=== PATIENT | male | born 1965 | race Two or more races ===

== ENCOUNTER 2016-10-26 11:49 | Inpatient (IN) | payer OTHER ==
[2016-10-26 13:03] VITALS: BMI 23.6
--- NOTE | 2016-10-26 14:33 | HP ---
CIWA Score - CIWA Score Nausea/Vomitin-Mild Nausea/No Vomiting Muscle Tremors: 4-Moderate,w/Arms Extend Anxiety: 3 Agitation: 4-Moderately Restless Paroxysmal Sweats: 3 Orientation: 0-Oriented Tacttile Disturbances: 0-None Auditory Disturbances: 0-None Visual Disturbances: 0-None Headache: 1-Very Mild CIWA-Ar Total Score: 16 Admission ROS [facility] - HPI Chief Complaint: I need to get clean and stay sober. Allergies/Adverse Reactions: Allergies Allergy/AdvReac Type Severity Reaction Status Date / Time No Known Allergies Allergy Verified 10/26/16 14:17 History of Present Illness: pt is a 51yr old male with a history of alcohol, xanax and cocaine dependence seeking detox for treatment. Exam Limitations: Language Barrier (speak/understand Swedish very little Hungarian ), Physical Impairment (uses a cane to ambulate) - Ebola screening Have you traveled outside of the country in the last 21 days: No Have you had contact with anyone from an Ebola affected area: No Have you been sick,other than usual withdrawal symptoms: No Do you have a fever: No - Review of Systems Constitutional: Chills, Diaphoresis, Loss of Appetite, Weight Stable EENT: reports: Nose Congestion Respiratory: reports: No Symptoms reported Cardiac: reports: No Symptoms Reported GI: reports: Diarrhea, Nausea, Poor Fluid Intake, Vomiting, Indigestion : reports: No Symptoms Reported Musculoskeletal: reports: Back Pain, Joint Pain Integumentary: reports: Bruising (on left knee d/t fall), Erythema, Flushing Neuro: reports: Headache, Tingling, Tremors Endocrine: reports: Excessive Sweating, Flushing, Intolerance to Cold, Intolerance to Heat Hematology: reports: No Symptoms Reported Psychiatric: reports: No Sypmtoms Reported, Judgement Intact, Mood/Affect Appropiate, Orientated x3, Agitated, Anxious Other Systems: Reviewed and Negative Patient History - Patient Medical History Hx Anemia: No Hx Asthma: No Hx Chronic Obstructive Pulmonary Disease (COPD): No Hx Cancer: No Hx Cardiac Disorders: No Hx Congestive Heart Failure: No Hx Hypertension: No Hx Hypercholesterolemia: No Hx Pacemaker: No HX Cerebrovascular Accident: No Hx Seizures: No Hx Dementia: No Hx Diabetes: Yes Hx Gastrointestinal Disorders: No Hx Liver Disease: Yes Hx Genitourinary Disorders: No Hx Sexually Transmitted Disorders: No Hx Renal Disease (ESRD): No Hx Thyroid Disease: No Hx Human Immunodeficiency Virus (HIV): No Hx Hepatitis C: Yes (NEEDS TREATMENT) Hx Depression: Yes Hx Suicide Attempt: No (denies) Hx Bipolar Disorder: Yes Hx Schizophrenia: No Other Medical History: anxiety - Patient Surgical History Past Surgical History: No Hx Neurologic Surgery: No Hx Cataract Extraction: No Hx Cardiac Surgery: No Hx Lung Surgery: No Hx Breast Surgery: No Hx Breast Biopsy: No Hx Abdominal Surgery: No Hx Appendectomy: No Hx Cholecystectomy: No Hx Genitourinary Surgery: No Hx Section: No Hx Orthopedic Surgery: No Anesthesia Reaction: No - PPD History Previous Implant?: Yes Documented Results: Positive w/o proof Implanted On Prior [facility] Admission?: No Results: cxr PPD to be Administered?: No - Reproductive History Patient is a Female of Child Bearing Age (11 -55 yrs old): No - Smoking Cessation Smoking history: Current every day smoker Aproximately how many cigarettes per day: 2 Hx Chewing Tobacco Use: No Initiated information on smoking cessation: Yes 'Breaking Loose' booklet given: 10/26/16 - Substance & Tx. History Hx Alcohol Use: Yes Hx Substance Use: Yes Substance Use Type: Alcohol, Cocaine, Heroin, Prescribed Hx Substance Use Treatment: Yes (last detox 2yrs ago [facility]) - Substances Abused Cocaine Route: Inhalation Frequency: Daily Amount used: $40-50 Age of first use: 14 Date of Last Use: 10/25/16 Heroin Route: Inhalation Frequency: Daily Amount used: 2 bags Age of first use: 14 Date of Last Use: 10/25/16 Alcohol-beer Route: Oral Frequency: 3-6 times per week Amount used: 4 (12 oz.) Age of first use: 13 Date of Last Use: 10/25/16 Xanax Route: Oral Frequency: Daily Amount used: 6 mg. Age of first use: 41 Date of Last Use: 10/25/16 Family Disease History - Family Disease History Family Disease History: Diabetes: Mother, Other: Father ( OF A STROKE) Admission Physical Exam BHS - Vital Signs Vital Signs: Vital Signs - 24 hr 10/26/16 12:59 Temperature 97 F L Pulse Rate 58 L Respiratory 20 Rate Blood Pressure 118/71 - Physical General Appearance: Yes: Appropriately Dressed, Moderate Distress, Thin, Tremorous, Irritable, Sweating, Anxious HEENTM: Yes: Nasal Congestion, Rhinorrhea Respiratory: Yes: Lungs Clear, Normal Breath Sounds, No Respiratory Distress Neck: Yes: No masses,lesions,Nodules Breast: Yes: Within Normal Limits Cardiology: Yes: Regular Rhythm, Regular Rate, S1, S2 Abdominal: Yes: Normal Bowel Sounds, Non Tender, Soft Genitourinary: Yes: Within Normal Limits Back: Yes: Normal Inspection Musculoskeletal: Yes: full range of Motion Extremities: Yes: Normal Capillary Refill, Normal Inspection, Non-Tender, Tremors Neurological: Yes: Fully Oriented, Alert, Normal Response Integumentary: Yes: Normal Color, Diaphoresis, Track Barrera Lymphatic: Yes: Within Normal Limits - Diagnostic (1) Alcohol dependence with uncomplicated withdrawal Current Visit: Yes Status: Chronic (2) Cocaine dependence, uncomplicated Current Visit: Yes Status: Chronic (3) Methadone maintenance therapy patient Current Visit: Yes Status: Chronic Comment: pending verification of 45mg; last dose taken today (4) PPD positive Current Visit: Yes Status: Chronic (5) GERD (gastroesophageal reflux disease) Current Visit: Yes Status: Chronic Qualifiers: Esophagitis presence: without esophagitis Qualified Code(s): K21.9 - Gastro-esophageal reflux disease without esophagitis (6) Nicotine dependence Current Visit: Yes Status: Chronic Qualifiers: Nicotine product type: cigarettes Substance use status: uncomplicated Qualified Code(s): F17.210 - Nicotine dependence, cigarettes, uncomplicated (7) Traumatic ecchymosis of left knee Current Visit: Yes Status: Acute Qualifiers: Encounter type: initial encounter Qualified Code(s): S80.02XA - Contusion of left knee, initial encounter Comment: left knee bruising d/t fall Cleared for Admission S - Detox or Rehab [facility] Level of Care: Medically Managed Detox Regimen/Protocol: Valium [facility] Breath Alcohol Content Breath Alcohol Content: 0 Urine Drug Screen - Results Drug Screen Negative: No Urine Drug Screen Results: ASAEL-Cocaine, OPI-Opiates, BZO-Benzodiazepines, MTD- Methadone
[2016-10-26] MEDS ORDERED: MENTHOL/PHENOL 1 EACH UD MM PRN (14:51)
[2016-10-26] MEDS ORDERED: ACETAMINOPHEN 325 MG TABLET (FP) PO PRN (14:51)
[2016-10-26] MEDS ORDERED: IBUPROFEN 400 MG TABLET (FP) PO PRN (14:51)
[2016-10-26] MEDS ORDERED: MAGNESIUM CITRATE 300 ML BOTTLE PO PRN (14:51)
[2016-10-26] MEDS ORDERED: diphenhydrAMINE HCL 50 MG CAPSULE PO PRN (14:51)
[2016-10-26] MEDS ORDERED: MAG HYDROX/AL HYDROX/SIMETH 30 ML UNIT-DOSE CUP PO PRN (14:51)
[2016-10-26] MEDS ORDERED: guaiFENesin/D-METHORPHAN HB 10 ML UNIT-DOSE CUPS PO PRN (14:51)
[2016-10-26] MEDS ORDERED: MAGNESIUM HYDROX 2400MG/30ML ORAL SUSPENSION 30 ML CUP PO PRN (14:51)
[2016-10-26] MEDS ORDERED: P-EPHED 60MG/TRIPROLIDI 2.5MG TABLET PO PRN (14:51)
[2016-10-26] MEDS ORDERED: LOPERAMIDE HCL 2 MG CAPSULE PO PRN (14:51)
[2016-10-26] MEDS ORDERED: hydrOXYzine PAMOATE 50 MG CAPSULE (FP) PO PRN (14:51)
[2016-10-26] MEDS ORDERED: diazePAM 5 MG TABLET PO ONE (15:10)
[2016-10-26] MEDS: diazePAM 5 MG TABLET PO SCH ×2 (15:28→22:20)
[2016-10-26] MEDS: BACITRACIN 0.9 GM PACKET TP SCH (22:19)
[2016-10-26] MEDS: THIAMINE HCL 100 MG TABLET (FP) PO SCH (22:19)
[2016-10-26] MEDS: RANITIDINE HCL 150 MG TABLET (FP) PO SCH (22:19)
[2016-10-26 22:34] LABS: URINE APPEARANCE CLEAR; URINE BILIRUBIN NEGATIVE (NEGATIVE); URINE BLOOD NEGATIVE (NEGATIVE); URINE COLOR DKYELLOW; URINE GLUCOSE (UA) NEGATIVE (NEGATIVE); URINE KETONE TRACE (NEGATIVE); URINE LEUK ESTERASE NEGATIVE (NEGATIVE); URINE NITRITE NEGATIVE (NEGATIVE); URINE PROTEIN NEGATIVE (NEGATIVE)
[2016-10-27] MEDS: diazePAM 5 MG TABLET PO SCH ×3 (05:36→22:24)
--- NOTE | 2016-10-27 09:03 | PN ---
[facility] CIWA - CIWA Score Nausea/Vomitin-No Nausea/No Vomiting Muscle Tremors: 4-Moderate,w/Arms Extend Anxiety: 4-Mod. Anxious/Guarded Agitation: 4-Moderately Restless Paroxysmal Sweats: 3 Orientation: 0-Oriented Tacttile Disturbances: 0-None Auditory Disturbances: 0-None Visual Disturbances: 0-None Headache: 0-None Present CIWA-Ar Total Score: 15 BHS Progress Note (SOAP) Subjective: Anxiety,tremors,sweating,interrupted sleep,restless Objective: 10/27/16 09:02 Vital Signs - 8 hr 10/27/16 10/27/16 04:08 06:32 Temperature 96.6 F L Pulse Rate 55 L Respiratory 18 18 Rate Blood Pressure 105/67 Laboratory Last Values POC Glucometer 97 UNITS (()) 10/27/16 05:38 Urine Color Dkyellow 10/26/16 22:20 Urine Appearance Clear 10/26/16 22:20 Urine pH 5.0 (5.0-8.0) 10/26/16 22:20 Urine Protein Negative (NEGATIVE) 10/26/16 22:20 Urine Glucose (UA) Negative (NEGATIVE) 10/26/16 22:20 Urine Ketones Trace (NEGATIVE) H 10/26/16 22:20 Urine Blood Negative (NEGATIVE) 10/26/16 22:20 Urine Nitrite Negative (NEGATIVE) 10/26/16 22:20 Urine Bilirubin Negative (NEGATIVE) 10/26/16 22:20 Urine Urobilinogen 2.0 mg/dL (0.2-1.0) 10/26/16 22:20 Ur Leukocyte Esterase Negative (NEGATIVE) 10/26/16 22:20 Assessment: 10/27/16 09:03 Withdrawal sx. Plan: Continue detox
[2016-10-27] MEDS ORDERED: METHADONE HCL 40 MG DISPERSABLE TABLET PO ONE (09:14)
[2016-10-27] MEDS: PRENATAL VITAMINS W/ FOLIC ACID TABLET (FP) PO SCH (10:35)
[2016-10-27] MEDS: BACITRACIN 0.9 GM PACKET TP SCH ×2 (10:35→22:24)
[2016-10-27] MEDS: RANITIDINE HCL 150 MG TABLET (FP) PO SCH ×2 (10:36→22:24)
[2016-10-27] MEDS: diazePAM 5 MG TABLET PO PRN ×2 (10:37→17:25)
[2016-10-27] MEDS: NICOTINE 7 MG/24 HOURS TOPICAL PATCH TD SCH (10:38)
--- NOTE | 2016-10-27 11:29 | CONSULT ---
[facility] Psychiatric Consult - Data Date of interview: 10/27/16 Admission source: [facility] Identifying data: Readmission to [facility] for this 51 y/o male seeking detox treatment on for alcohol,opioid,cocaine and xanax dependence.Patient is single without children,domiciled,unemployed and supported on SSI benefits. Substance Abuse History: Discussed in this session.Patient confirms this report : Smoking Cessation. Smoking history: Current every day smoker. Aproximately how many cigarettes per day: 3. Hx Chewing Tobacco Use: No. Initiated information on smoking cessation: Yes. 'Breaking Loose' booklet given: . - Substance & Tx. History. Hx Alcohol Use: Yes. Hx Substance Use: Yes. Substance Use Type: Alcohol, Cocaine. Hx Substance Use Treatment: Yes (DETOX, OTP). - Substances Abused. Alcohol. Route: Oral. Frequency: Daily. Amount used: BEER 3(6PACK),RUM 1/2 PINT. Age of first use: 13. Date of Last Use: 10/23/15. Cocaine. Route: Inhalation. Frequency: Daily. Amount used : 2 BAGS. Age of first use: 14. Date of Last Use: 10/23/15 Medical History: Hepatitis C,herniated disc (lumbar spine) and a history of treatment for syphilis. Psychiatric History: No reported history of psychiatric hospitalizations.Diagnosed with Bipolar Disorder.Mr Villasenor is currently on methadone maintenance (40 mg/day) at the [facility].He is also on a regimen of lexapro 20 mg/day + abilify 20 mg/day + ambien 10 mg/hs.He endorses history of adequate adherence to his medications.Noted history of suicide attempts (via overdose with drugs). Physical/Sexual Abuse/Trauma History: Patient denies. Additional Comment: Urine Drug Screen Results: ASAEL-Cocaine, OPI-Opiates, BZO- Benzodiazepines, MTD-Methadone.Noted. Mental Status Exam - Mental Status Exam Alert and Oriented to: Time, Place, Person Cognitive Function: Good Patient Appearance: Disheveled Mood: Hopeful, Euthymic Affect: Appropriate, Normal Range Patient Behavior: Fatigued, Appropriate, Cooperative Speech Pattern: Clear, Appropriate (in occitan.Good historian) Voice Loudness: Normal Thought Process: Intact, Goal Oriented Thought Disorder: Not Present Hallucinations: Denies Suicidal Ideation: Denies Homicidal Ideation: Denies Insight/Judgement: Poor Sleep: Poorly, Difficulty falling asleep Appetite: Good Muscle strength/Tone: Normal Gait/Station: Normal Psychiatric Findings - Problem List ([place] 1, 2,3) (1) Alcohol dependence with uncomplicated withdrawal Current Visit: Yes Status: Acute (2) Opioid dependence on agonist therapy Current Visit: Yes Status: Acute (3) Cocaine dependence, uncomplicated Current Visit: Yes Status: Acute (4) Nicotine dependence Current Visit: Yes Status: Acute Qualifiers: Nicotine product type: cigarettes Substance use status: uncomplicated Qualified Code(s): F17.210 - Nicotine dependence, cigarettes, uncomplicated (5) Substance induced mood disorder Current Visit: Yes Status: Acute (6) Bipolar disorder Current Visit: Yes Status: Chronic (7) Traumatic ecchymosis of left knee Current Visit: Yes Status: Acute Qualifiers: Encounter type: initial encounter Qualified Code(s): S80.02XA - Contusion of left knee, initial encounter Comment: left knee bruising d/t fall (8) GERD (gastroesophageal reflux disease) Current Visit: Yes Status: Chronic Qualifiers: Esophagitis presence: without esophagitis Qualified Code(s): K21.9 - Gastro-esophageal reflux disease without esophagitis (9) PPD positive Current Visit: Yes Status: Chronic (10) Insomnia Current Visit: Yes Status: Acute - Initial Treatment Plan Initial Treatment Plan: Psychoeducation.Detoxification.Medications : abilify 20 mg po daily + lexapro 20 mg po hs + ambien 5 mg po hs prn.Side effects/benefits of each medication are discussed with the patient.He is in agreement with this plan of care.Observation.
[2016-10-27] MEDS: ESCITALOPRAM OXALATE 20 MG TABLET (FP) PO SCH (11:46)
[2016-10-27 12:35] LABS: MCH 31.1 pg (25.7-33.7); MCHC 33.6 g/dl (32.0-35.9); MEAN CELL VOLUME 92.6 fl (80-96); MEAN PLT VOLUME 9.2 fl (7.5-11.1); PLATELET COUNT 198 K/MM3 (134-434); RDW 14.2 % (11.9-15.9)
[2016-10-27 12:48] LABS: ALBUMIN 3.1 g/dl (3.4-5.0); ALK PHOS 56 U/L (45-117); ANION GAP 5 (8-16); BILIRUBIN,TOTAL 0.4 mg/dL (0.2-1.0); CALCIUM 8.7 mg/dL (8.5-10.1); CO2 33 mmol/L (21-32); CREATININE 0.7 mg/dL (0.7-1.3); GLUCOSE,RANDOM 89 mg/dL (74-106); SGOT/AST 23 U/L (15-37); SGPT/ALT 28 U/L (12-78)
[2016-10-27] MEDS ORDERED: ZOLPIDEM TARTRATE 5 MG TABLET PO PRN (22:00)
[2016-10-27] MEDS: THIAMINE HCL 100 MG TABLET (FP) PO SCH (22:24)
[2016-10-27] MEDS: ARIPiprazole 10 MG TABLET PO SCH (22:24)
[2016-10-28] MEDS ORDERED: METHADONE HCL 5 MG TABLET ONE (04:13)
[2016-10-28] MEDS ORDERED: METHADONE HCL 40 MG DISPERSABLE TABLET ONE (04:14)
[2016-10-28] MEDS: diazePAM 5 MG TABLET PO PRN (05:44)
[2016-10-28] MEDS: METHADONE 40 MG, METHADONE 5 MG PO SCH (05:44)
[2016-10-28] MEDS ORDERED: METHADONE HCL 10 MG TABLET PO SCH (06:00)
[2016-10-28] MEDS: BACITRACIN 0.9 GM PACKET TP SCH ×2 (10:00→22:27)
[2016-10-28] MEDS: PRENATAL VITAMINS W/ FOLIC ACID TABLET (FP) PO SCH (10:00)
[2016-10-28] MEDS: diazePAM 5 MG TABLET PO SCH ×2 (10:00→22:28)
[2016-10-28] MEDS: RANITIDINE HCL 150 MG TABLET (FP) PO SCH ×2 (10:00→22:27)
[2016-10-28] MEDS: NICOTINE 7 MG/24 HOURS TOPICAL PATCH TD SCH (10:01)
[2016-10-28] MEDS: ESCITALOPRAM OXALATE 20 MG TABLET (FP) PO SCH (10:02)
--- NOTE | 2016-10-28 12:38 | PN ---
S CIWA - CIWA Score Nausea/Vomitin-Mild Nausea/No Vomiting Muscle Tremors: 4-Moderate,w/Arms Extend Anxiety: 2 Agitation: 3 Paroxysmal Sweats: No Perspiration Orientation: 4Disoriented Place/Person Tacttile Disturbances: 0-None Auditory Disturbances: 0-None Visual Disturbances: 1-Very Mild Sensitivity Headache: 0-None Present CIWA-Ar Total Score: 15 S Progress Note (SOAP) Subjective: Tremors, Sweating. Objective: PT. A & O X 1 (DISORIENTED ABOUT DAY / DATE AND ABOUT CURRENT LOCATION). NO ACUTE DISTRESS. 10/28/16 12:38 Vital Signs Temperature 97.8 F 10/28/16 09:36 Pulse Rate 54 L 10/28/16 09:36 Respiratory Rate 18 10/28/16 09:36 Blood Pressure 109/68 10/28/16 09:36 O2 Sat by Pulse Oximetry (%) Laboratory Tests 10/26/16 10/26/16 10/26/16 14:35 16:31 22:20 WBC RBC Hgb Hct MCV MCH MCHC RDW Plt Count MPV Sodium Potassium Chloride Carbon Dioxide Anion Gap BUN Creatinine Creat Clearance w eGFR POC Glucometer 118 122 Random Glucose Calcium Total Bilirubin AST ALT Alkaline Phosphatase Total Protein Albumin Urine Color Dkyellow Urine Appearance Clear Urine pH 5.0 Ur Specific [place] 1.015 Urine Protein Negative Urine Glucose (UA) Negative Urine Ketones Trace H Urine Blood Negative Urine Nitrite Negative Urine Bilirubin Negative Urine Urobilinogen 2.0 Ur Leukocyte Esterase Negative RPR Titer 10/27/16 10/27/16 10/27/16 05:38 07:40 07:40 WBC 6.0 D RBC 3.82 L Hgb 11.9 Hct 35.4 MCV 92.6 MCH 31.1 MCHC 33.6 RDW 14.2 Plt Count 198 MPV 9.2 Sodium 142 Potassium 3.8 Chloride 104 Carbon Dioxide 33 H Anion Gap 5 L BUN 14 D Creatinine 0.7 D Creat Clearance w eGFR > 60 POC Glucometer 97 Random Glucose 89 Calcium 8.7 Total Bilirubin 0.4 AST 23 D ALT 28 Alkaline Phosphatase 56 D Total Protein 6.0 L Albumin 3.1 L Urine Color Urine Appearance Urine pH Ur Specific [place] Urine Protein Urine Glucose (UA) Urine Ketones Urine Blood Urine Nitrite Urine Bilirubin Urine Urobilinogen Ur Leukocyte Esterase RPR Titer 10/27/16 10/27/16 10/28/16 07:40 16:27 05:47 WBC RBC Hgb Hct MCV MCH MCHC RDW Plt Count MPV Sodium Potassium Chloride Carbon Dioxide Anion Gap BUN Creatinine Creat Clearance w eGFR POC Glucometer 137 115 Random Glucose Calcium Total Bilirubin AST ALT Alkaline Phosphatase Total Protein Albumin Urine Color Urine Appearance Urine pH Ur Specific [place] Urine Protein Urine Glucose (UA) Urine Ketones Urine Blood Urine Nitrite Urine Bilirubin Urine Urobilinogen Ur Leukocyte Esterase RPR Titer Nonreactive LABS NOTED. 10/28/16 12:43 Assessment: 10/28/16 12:44 WITHDRAWAL SYMPTOMS. Plan: CONTINUE DETOX.
--- NOTE | 2016-10-28 14:52 | EKG ---
Test Reason : Blood Pressure : / mmHG Vent. Rate : 063 BPM Atrial Rate : 063 BPM P-R Int : 142 ms QRS Dur : 086 ms QT Int : 486 ms P-R-T Axes : 049 016 017 degrees QTc Int : 497 ms NORMAL SINUS RHYTHM PROLONGED QT ABNORMAL ECG NO PREVIOUS ECGS AVAILABLE Confirmed by FERMIN ANTOINE MD ([id number]) on 10/28/2016 2:51:32 PM Referred By: Confirmed By:FERMIN ANTOINE MD
[2016-10-28] MEDS: ARIPiprazole 10 MG TABLET PO SCH (22:27)
[2016-10-28] MEDS: THIAMINE HCL 100 MG TABLET (FP) PO SCH (22:28)
[2016-10-29] MEDS ORDERED: METHADONE HCL 5 MG TABLET ONE (03:49)
[2016-10-29] MEDS ORDERED: METHADONE HCL 40 MG DISPERSABLE TABLET ONE (03:51)
[2016-10-29] MEDS: METHADONE 40 MG, METHADONE 5 MG PO SCH (05:56)
[2016-10-29] MEDS: PRENATAL VITAMINS W/ FOLIC ACID TABLET (FP) PO SCH (10:47)
[2016-10-29] MEDS: RANITIDINE HCL 150 MG TABLET (FP) PO SCH ×2 (10:47→22:35)
[2016-10-29] MEDS: ESCITALOPRAM OXALATE 20 MG TABLET (FP) PO SCH (10:47)
[2016-10-29] MEDS: NICOTINE 7 MG/24 HOURS TOPICAL PATCH TD SCH (10:47)
[2016-10-29] MEDS: BACITRACIN 0.9 GM PACKET TP SCH ×2 (10:47→22:35)
[2016-10-29] MEDS: diazePAM 5 MG TABLET PO SCH ×2 (10:48→22:35)
--- NOTE | 2016-10-29 10:51 | PN ---
BHS Progress Note (SOAP) Subjective: Sweating,interrupted sleep,restless Objective: 10/29/16 10:50 Vital Signs - 8 hr 10/29/16 10/29/16 10/29/16 04:17 06:41 09:41 Temperature 97 F L 97.2 F L Pulse Rate 55 L 54 L Respiratory 18 18 16 Rate Blood Pressure 96/64 104/66 Laboratory Last Values WBC 6.0 K/mm3 (4.0-10.0) D 10/27/16 07:40 RBC 3.82 M/mm3 (4.00-5.60) L 10/27/16 07:40 Hgb 11.9 GM/dL (11.7-16.9) 10/27/16 07:40 Hct 35.4 % (35.4-49) 10/27/16 07:40 MCV 92.6 fl (80-96) 10/27/16 07:40 MCH 31.1 pg (25.7-33.7) 10/27/16 07:40 MCHC 33.6 g/dl (32.0-35.9) 10/27/16 07:40 RDW 14.2 % (11.9-15.9) 10/27/16 07:40 Plt Count 198 K/MM3 (134-434) 10/27/16 07:40 MPV 9.2 fl (7.5-11.1) 10/27/16 07:40 Sodium 142 mmol/L (136-145) 10/27/16 07:40 Potassium 3.8 mmol/L (3.5-5.1) 10/27/16 07:40 Chloride 104 mmol/L (98-107) 10/27/16 07:40 Carbon Dioxide 33 mmol/L (21-32) H 10/27/16 07:40 Anion Gap 5 (8-16) L 10/27/16 07:40 BUN 14 mg/dL (7-18) D 10/27/16 07:40 Creatinine 0.7 mg/dL (0.7-1.3) D 10/27/16 07:40 Creat Clearance w eGFR > 60 (>60) 10/27/16 07:40 POC Glucometer 99 UNITS (()) 10/29/16 05:58 Random Glucose 89 mg/dL (74-106) 10/27/16 07:40 Calcium 8.7 mg/dL (8.5-10.1) 10/27/16 07:40 Total Bilirubin 0.4 mg/dL (0.2-1.0) 10/27/16 07:40 AST 23 U/L (15-37) D 10/27/16 07:40 ALT 28 U/L (12-78) 10/27/16 07:40 Alkaline Phosphatase 56 U/L (45-117) D 10/27/16 07:40 Total Protein 6.0 g/dl (6.4-8.2) L 10/27/16 07:40 Albumin 3.1 g/dl (3.4-5.0) L 10/27/16 07:40 Urine Color Dkyellow 10/26/16 22:20 Urine Appearance Clear 10/26/16 22:20 Urine pH 5.0 (5.0-8.0) 10/26/16 22:20 Ur Specific [place] 1.015 (1.005-1.025) 10/26/16 22:20 Urine Protein Negative (NEGATIVE) 10/26/16 22:20 Urine Glucose (UA) Negative (NEGATIVE) 10/26/16 22:20 Urine Ketones Trace (NEGATIVE) H 10/26/16 22:20 Urine Blood Negative (NEGATIVE) 10/26/16 22:20 Urine Nitrite Negative (NEGATIVE) 10/26/16 22:20 Urine Bilirubin Negative (NEGATIVE) 10/26/16 22:20 Urine Urobilinogen 2.0 mg/dL (0.2-1.0) 10/26/16 22:20 Ur Leukocyte Esterase Negative (NEGATIVE) 10/26/16 22:20 RPR Titer Nonreactive (NONREACTIVE) 10/27/16 07:40 labs oted Assessment: 10/29/16 10:50 Withdrawal sx. Plan: Continue detox
[2016-10-29] MEDS: THIAMINE HCL 100 MG TABLET (FP) PO SCH (22:35)
[2016-10-29] MEDS: ARIPiprazole 10 MG TABLET PO SCH (22:36)
[2016-10-30] MEDS ORDERED: METHADONE HCL 5 MG TABLET ONE (04:51)
[2016-10-30] MEDS ORDERED: METHADONE HCL 40 MG DISPERSABLE TABLET ONE (04:51)
[2016-10-30] MEDS: METHADONE 40 MG, METHADONE 5 MG PO SCH (05:49)
[2016-10-30] MEDS ORDERED: diazePAM 5 MG TABLET PO SCH (10:00)
[2016-10-30 10:43] VITALS: BP 123/83; PULSE 84; TEMP 98.1
--- NOTE | 2016-10-30 11:46 | DS ---
[facility] Detox Discharge Summary Admission Date: 10/26/16 Discharge Date: 10/30/16 - History Present History: Alcohol Dependence, Cocaine Dependence, MMTP Additional Comments: PT. GOING TO [place], [place]. PATIENT ADVISED TO FOLLOW-UP THERE FOR AFTERCARE PER DISCHARGE ARRANGEMENT. PATIENT LEFT UNIT IN STABLE MEDICAL CONDITION. Pertinent Past History: GERD, Depression, MMTP, History of PPD Positive, Bipolar disorder, Traumatic Ecchymosis of Left Knee. - Physical Exam Results Vital Signs: Vital Signs Temperature 98.1 F 10/30/16 10:42 Pulse Rate 84 10/30/16 10:42 Respiratory Rate 20 10/30/16 10:42 Blood Pressure 123/83 10/30/16 10:42 O2 Sat by Pulse Oximetry (%) Pertinent Admission Physical Exam Findings: WITHDRAWAL SYMPTOMS. Laboratory Tests 10/26/16 10/26/16 10/26/16 14:35 16:31 22:20 WBC RBC Hgb Hct MCV MCH MCHC RDW Plt Count MPV Sodium Potassium Chloride Carbon Dioxide Anion Gap BUN Creatinine Creat Clearance w eGFR POC Glucometer 118 122 Random Glucose Calcium Total Bilirubin AST ALT Alkaline Phosphatase Total Protein Albumin Urine Color Dkyellow Urine Appearance Clear Urine pH 5.0 Ur Specific [place] 1.015 Urine Protein Negative Urine Glucose (UA) Negative Urine Ketones Trace H Urine Blood Negative Urine Nitrite Negative Urine Bilirubin Negative Urine Urobilinogen 2.0 Ur Leukocyte Esterase Negative RPR Titer 10/27/16 10/27/16 10/27/16 05:38 07:40 07:40 WBC 6.0 D RBC 3.82 L Hgb 11.9 Hct 35.4 MCV 92.6 MCH 31.1 MCHC 33.6 RDW 14.2 Plt Count 198 MPV 9.2 Sodium 142 Potassium 3.8 Chloride 104 Carbon Dioxide 33 H Anion Gap 5 L BUN 14 D Creatinine 0.7 D Creat Clearance w eGFR > 60 POC Glucometer 97 Random Glucose 89 Calcium 8.7 Total Bilirubin 0.4 AST 23 D ALT 28 Alkaline Phosphatase 56 D Total Protein 6.0 L Albumin 3.1 L Urine Color Urine Appearance Urine pH Ur Specific [place] Urine Protein Urine Glucose (UA) Urine Ketones Urine Blood Urine Nitrite Urine Bilirubin Urine Urobilinogen Ur Leukocyte Esterase RPR Titer 10/27/16 10/27/16 10/28/16 07:40 16:27 05:47 WBC RBC Hgb Hct MCV MCH MCHC RDW Plt Count MPV Sodium Potassium Chloride Carbon Dioxide Anion Gap BUN Creatinine Creat Clearance w eGFR POC Glucometer 137 115 Random Glucose Calcium Total Bilirubin AST ALT Alkaline Phosphatase Total Protein Albumin Urine Color Urine Appearance Urine pH Ur Specific [place] Urine Protein Urine Glucose (UA) Urine Ketones Urine Blood Urine Nitrite Urine Bilirubin Urine Urobilinogen Ur Leukocyte Esterase RPR Titer Nonreactive 10/28/16 10/29/16 10/29/16 16:26 05:58 16:18 WBC RBC Hgb Hct MCV MCH MCHC RDW Plt Count MPV Sodium Potassium Chloride Carbon Dioxide Anion Gap BUN Creatinine Creat Clearance w eGFR POC Glucometer 102 99 105 Random Glucose Calcium Total Bilirubin AST ALT Alkaline Phosphatase Total Protein Albumin Urine Color Urine Appearance Urine pH Ur Specific [place] Urine Protein Urine Glucose (UA) Urine Ketones Urine Blood Urine Nitrite Urine Bilirubin Urine Urobilinogen Ur Leukocyte Esterase RPR Titer 10/30/16 05:51 WBC RBC Hgb Hct MCV MCH MCHC RDW Plt Count MPV Sodium Potassium Chloride Carbon Dioxide Anion Gap BUN Creatinine Creat Clearance w eGFR POC Glucometer 93 Random Glucose Calcium Total Bilirubin AST ALT Alkaline Phosphatase Total Protein Albumin Urine Color Urine Appearance Urine pH Ur Specific [place] Urine Protein Urine Glucose (UA) Urine Ketones Urine Blood Urine Nitrite Urine Bilirubin Urine Urobilinogen Ur Leukocyte Esterase RPR Titer LABS NOTED. - Treatment Hospital Course: Detox Protocol Followed, Detoxed Safely, Responded well, Discharged Condition Good, Rehab Referral Accepted Patient has Accepted a Rehab Referral to: [facility]. - Medication Discharge Medications: Ambulatory Orders Aripiprazole [Abilify -] 20 mg PO DAILY 10/26/16 Escitalopram Oxalate [Lexapro -] 20 mg PO DAILY 10/26/16 Aripiprazole [Abilify -] 20 mg PO HS #30 tablet 10/27/16 Escitalopram Oxalate [Lexapro -] 20 mg PO DAILY #30 tablet 10/27/16 - Diagnosis (1) Alcohol dependence with uncomplicated withdrawal Status: Acute (2) Cocaine dependence, uncomplicated Status: Acute (3) Insomnia Status: Acute Qualifiers: Insomnia type: unspecified Qualified Code(s): G47.00 - Insomnia, unspecified (4) Nicotine dependence Status: Chronic Qualifiers: Nicotine product type: cigarettes Substance use status: uncomplicated Qualified Code(s): F17.210 - Nicotine dependence, cigarettes, uncomplicated (5) Opioid dependence on agonist therapy Status: Chronic (6) Substance induced mood disorder Status: Acute (7) Traumatic ecchymosis of left knee Status: Acute Qualifiers: Encounter type: initial encounter Qualified Code(s): S80.02XA - Contusion of left knee, initial encounter (8) Bipolar disorder Status: Chronic Qualifiers: Active/Remission status: remission status unspecified Qualified Code (s): F31.9 - Bipolar disorder, unspecified (9) GERD (gastroesophageal reflux disease) Status: Chronic Qualifiers: Esophagitis presence: without esophagitis Qualified Code(s): K21.9 - Gastro-esophageal reflux disease without esophagitis (10) Methadone maintenance therapy patient Status: Chronic (11) PPD positive Status: Chronic - AMA Did Patient Leave Against Medical Advice: No
== END 2016-10-30 08:39 | disposition home or self-care (01) | DRG 773 ==
LOC: YASAS 11:49 → Y3N 15:07
PROVIDERS: ADMIT Internal Medicine; ATTEND Internal Medicine
PROC: HZ2ZZZZ Detoxification Services for Substance Abuse Treatment (ICD-10-PCS; principal; 2016-10-26)
DX: F10.230 Alcohol dependence with withdrawal, uncomplicated (principal); F11.20 Opioid dependence, uncomplicated; F14.20 Cocaine dependence, uncomplicated; F17.210 Nicotine dependence, cigarettes, uncomplicated; F19.24 Other psychoactive substance dependence with psychoactive substance-induced mood disorder; F31.9 Bipolar disorder, unspecified; G47.00 Insomnia, unspecified; B18.2 Chronic viral hepatitis C; E11.9 Type 2 diabetes mellitus without complications; K21.9 Gastro-esophageal reflux disease without esophagitis; R76.11 Nonspecific reaction to tuberculin skin test without active tuberculosis; M51.26 Other intervertebral disc displacement, lumbar region; R26.2 Difficulty in walking, not elsewhere classified; Z99.89 Dependence on other enabling machines and devices; Z87.438 Personal history of other diseases of male genital organs; S80.02XA Contusion of left knee, initial encounter; W19.XXXA Unspecified fall, initial encounter; Y93.9 Activity, unspecified; Y92.9 Unspecified place or not applicable
CPT/HCPCS: 36415; 71020-TC; 80053; 81003; 85027; 86593; 93005; 93010

== ENCOUNTER 2020-01-03 11:45 | Inpatient (IN) | payer OTHER ==
--- NOTE | 2020-01-03 12:50 | BHS.RME ---
Substance Use & Tx History - Substance Use History Alcohol Substance amount: six pack Frequency of use: Daily Substance route: Oral Date of Last Use: 01/02/20 (started age 11) Heroin Substance amount: 5 bags Frequency of use: Daily Substance route: Injection (ex: intravenous or skin popping) Date of Last Use: 01/02/20 (started age 13) Cocaine- Powder Substance amount: $10 Frequency of use: Less than 3 times per week Substance route: Injection (ex: intravenous or skin popping) Date of Last Use: 01/02/20 (started age 11) Physical/Psych/Mental Status - Behavior General Behavior: Increased activity (restlessness, agitation) Eye Contact: Normal - Cooperativeness Cooperativeness: Cooperative - Thinking Thought Processes: Tight, Logical, Goal Directed - Physical Health Problems Is patient presently having any pain?: No Does patient presently have any injuries (include location): No Does patient currently have a fever: No Is patient : No CIWA Nausea/Vomitin-Mild Nausea/No Vomiting Muscle Tremors: 3 Anxiety: 4-Mod. Anxious/Guarded Agitation: 4-Moderately Restless Paroxysmal Sweats: 4-Forehead w/Sweat Beads Orientation: 0-Oriented Tacttile Disturbances: 1-Very Mild Itch/Numbness Auditory Disturbances: 0-None Visual Disturbances: 0-None Headache: 0-None Present CIWA-Ar Total Score: 17
--- NOTE | 2020-01-03 13:35 | HP ---
CIWA Score Nausea/Vomitin-Mild Nausea/No Vomiting Muscle Tremors: 3 Anxiety: 4-Mod. Anxious/Guarded Agitation: 4-Moderately Restless Paroxysmal Sweats: 4-Forehead w/Sweat Beads Orientation: 0-Oriented Tacttile Disturbances: 1-Very Mild Itch/Numbness Auditory Disturbances: 0-None Visual Disturbances: 0-None Headache: 0-None Present CIWA-Ar Total Score: 17 - Admission Criteria OASAS Guidelines: Admission for Medically Managed Detox: Requires at least one of the followin. CIWA greater than 12 2. Seizures within the past 24 hours 3. Delirium tremens within the past 24 hours 4. Hallucinations within the past 24 hours 5. Acute intervention needed for co occurring medical disorder 6. Acute intervention needed for co occurring psychiatric disorder 7. Severe withdrawal that cannot be handled at a lower level of care (continued vomiting, continued diarrhea, abnormal vital signs) requiring intravenous medication and/or fluids 8. Admitting History and Physical - Admission Chief Complaint: Mr. Villasenor is a 54 yo man who presents to [facility] requesting admission to detox for alcohol use disorder. History of Present Illness: Mr. Villasenor is a 54 yo man who presents to [facility] requesting admission to detox for alcohol use disorder. He is on a methadone program. He was last here in October 2016, tx for detox. PMH: Positive PPD tx in 2002 PSH: none Psych: Bipolar, schizophrenia: caitlinaprSteven almonte, none in 3 days SOC: homeless, on the streets Legal: none Substance Use History Alcohol Substance amount: six pack Frequency of use: Daily Substance route: Oral Date of Last Use: 01/02/20 (started age 11) No seizures or blackouts. Admits to eyeopener Heroin Substance amount: 5 bags Frequency of use: Daily Substance route: Injection (ex: intravenous or skin popping) Date of Last Use: 01/02/20 (started age 13) No OD Has narcan Cocaine- Powder Substance amount: $10 Frequency of use: Less than 3 times per week Substance route: Injection (ex: intravenous or skin popping) Date of Last Use: 01/02/20 (started age 11) History Source: Patient Limitations to Obtaining History: No Limitations - Smoking History Smoking history: Current every day smoker Aproximately how many cigarettes per day: 2 - Alcohol/Substance Use Hx Alcohol Use: Yes Admission ROS BHS - HPI Allergies/Adverse Reactions: Allergies Allergy/AdvReac Type Severity Reaction Status Date / Time No Known Allergies Allergy Verified 01/03/20 13:18 Exam Limitations: No Limitations - Ebola screening Have you traveled outside of the country in the last 21 days: No Have you been sick,other than usual withdrawal symptoms: No Do you have a fever: No - Review of Systems Constitutional: No Symptoms Reported EENT: reports: No Symptoms Reported Respiratory: reports: No Symptoms reported Cardiac: reports: No Symptoms Reported GI: reports: Nausea : reports: No Symptoms Reported Musculoskeletal: reports: No Symptoms Reported Integumentary: reports: No Symptoms Reported Neuro: reports: No Symptoms reported Endocrine: reports: No Symptoms Reported Hematology: reports: No Symptoms Reported Psychiatric: reports: Anxious Patient History - Patient Medical History Hx Anemia: No Hx Asthma: No Hx Chronic Obstructive Pulmonary Disease (COPD): No Hx Cancer: No Hx Cardiac Disorders: No Hx Congestive Heart Failure: No Hx Hypertension: No Hx Hypercholesterolemia: No Hx Pacemaker: No HX Cerebrovascular Accident: No Hx Seizures: No Hx Dementia: No Hx Diabetes: Yes Hx Gastrointestinal Disorders: No Hx Liver Disease: Yes Hx Genitourinary Disorders: No Hx Sexually Transmitted Disorders: No Hx Renal Disease (ESRD): No Hx Thyroid Disease: No Hx Human Immunodeficiency Virus (HIV): No Hx Hepatitis C: Yes (NEEDS TREATMENT) Hx Depression: Yes Hx Suicide Attempt: No (denies) Hx Bipolar Disorder: Yes Hx Schizophrenia: No - Patient Surgical History Past Surgical History: No Hx Neurologic Surgery: No Hx Cataract Extraction: No Hx Cardiac Surgery: No Hx Lung Surgery: No Hx Breast Surgery: No Hx Breast Biopsy: No Hx Abdominal Surgery: No Hx Appendectomy: No Hx Cholecystectomy: No Hx Genitourinary Surgery: No Hx Section: No Hx Orthopedic Surgery: No Anesthesia Reaction: No - PPD History Results: cxr - Smoking Cessation Smoking history: Current every day smoker Aproximately how many cigarettes per day: 3 Hx Chewing Tobacco Use: No Initiated information on smoking cessation: Yes 'Breaking Loose' booklet given: 01/03/20 Admission Physical Exam S - Vital Signs Vital Signs: 153/82, 69, 12, 98.2, 96% UDS: ASAEL, FEN, MOP, MTD ANAY: 0 - Physical General Appearance: Yes: Nourished, Appropriately Dressed, Irritable, Anxious HEENTM: Yes: EOMI, Hearing grossly Normal Respiratory: Yes: Lungs Clear, No Respiratory Distress, No Accessory Muscle Use Neck: Yes: Within Normal Limits, Supple Breast: Yes: Breast Exam Deferred Cardiology: Yes: Regular Rhythm, Regular Rate Abdominal: Yes: Non Tender, Flat, Soft, Decreased BS Genitourinary: Yes: Other (deferred) Back: Yes: Normal Inspection Musculoskeletal: Yes: Gait Steady Extremities: Yes: Normal Inspection, Non-Tender Neurological: Yes: Alert, Normal Response Integumentary: Yes: Normal Color, Dry, Warm, Track Barrera (no sign of infection, right side of neck) - Diagnostic (1) Alcohol dependence with uncomplicated withdrawal Current Visit: Yes Status: Acute (2) Cocaine dependence, uncomplicated Current Visit: Yes Status: Acute (3) Bipolar disorder Current Visit: Yes Status: Chronic Qualifiers: Active/Remission status: remission status unspecified Qualified Code(s): F31.9 - Bipolar disorder, unspecified (4) Methadone maintenance therapy patient Current Visit: Yes Status: Chronic Comment: pending verification of 45mg; last dose taken today (5) PPD positive Current Visit: No Status: Chronic Cleared for Admission S - Detox or Rehab [facility] Level of Care: Medically Managed Detox Regimen/Protocol: Librium Inpatient Rehab Admission - Rehab Decision to Admit Inpatient rehab admission?: No
[2020-01-03 13:38] VITALS: BMI 24.1
[2020-01-03] MEDS ORDERED: METHOCARBAMOL 500 MG TABLET PO PRN (13:43)
[2020-01-03] MEDS ORDERED: MAG HYDROX/AL HYDROX/SIMETH 30 ML UNIT-DOSE CUP PO PRN (13:43)
[2020-01-03] MEDS ORDERED: MAGNESIUM HYDROX 2400MG/30ML ORAL SUSPENSION 30 ML CUP PO PRN (13:43)
[2020-01-03] MEDS ORDERED: IBUPROFEN 400 MG TABLET (FP) PO PRN (13:43)
[2020-01-03] MEDS ORDERED: chlordiazePOXIDE HCL 25 MG CAPSULE PO PRN (13:43)
[2020-01-03] MEDS ORDERED: ACETAMINOPHEN 325 MG TABLET (FP) PO PRN ×2 (13:43)
[2020-01-03] MEDS ORDERED: NICOTINE POLACRILEX 2 MG GUM BUC PRN (13:43)
[2020-01-03] MEDS ORDERED: BISMUTH SUBSALICYLATE 262 MG/15 ML BTL PO PRN (13:43)
[2020-01-03] MEDS ORDERED: MAGNESIUM CITRATE 300 ML BOTTLE PO PRN (13:43)
[2020-01-03] MEDS ORDERED: MENTHOL/PHENOL 1 EACH UD MM PRN (13:43)
[2020-01-03] MEDS ORDERED: ONDANSETRON *ODT* 4 MG TABLET SL PRN (13:43)
--- OUTSIDE RECORDS SUMMARY | 2020-01-03 14:11 | XMS ---
:1965 Author Organization [facility] Support Name Relationship Address Phone PRESLEY HERNÁNDEZ SISTER [address] [place] [address] UE Unavailable Unavailable Unavailable KYRA HERNÁNDEZ SELF / SAME PATIENT [address] [place] [address] Re-disclosure Warning The records that you are about to access may contain information from federally- assisted alcohol or drug abuse programs. If such information is present, then the following federally mandated warning applies: This information has been disclosed to you from records protected by federal confidentiality rules (42 CFR part 2). The federal rules prohibit you from making any further disclosure of this information unless further disclosure is expressly permitted by the written consent of the person to whom it pertains or as otherwise permitted by 42 CFR part 2. A general authorization for the release of medical or other information is NOT sufficient for this purpose. The Federal rules restrict any use of the information to criminally investigate or prosecute any alcohol or drug abuse patient.The records that you are about to access may contain highly sensitive health information, the redisclosure of which is protected by Article 27-F of the [facility] Public Health law. If you continue you may haveaccess to information: Regarding HIV / AIDS; Provided by facilities licensed or operated by the [facility] Office of Mental Health; or Provided by the [facility] Office for People With Developmental Disabilities. If such information is present, then the following [facility] mandated warning applies: This information has been disclosed to you from confidential records which are protected by state law. State law prohibits you from making any further disclosure of this information without the specific written consent of the person to whom it pertains, or as otherwise permitted by law. Any unauthorized further disclosure in violation of state law may result in a fine or snf sentence or both. A general authorization for the release of medical or other information is NOT sufficient authorization for further disclosure. Insurance Providers Payer name Policy type Policy ID Covered Covered republican's Policy P andreina / Coverage republican ID relationship to [employer] type hawkins BEACON [id number] SP [id number] [employer] Results ID Date Data Source [id number] 09/08/2019 12:00:00 AM EDT [facility] Name Value Range Interpretation Code Description Data Laura rce(s) Supporting Document(s ) 2019-nCoV [facility] RNA XXX NEFTALY+probe- Imp This lab was ordered by [facility] and reported by [employer] Procedure
[2020-01-03] MEDS: hydrOXYzine PAMOATE 25 MG CAPSULE (FP) PO SCH ×3 (14:43→22:27)
--- NOTE | 2020-01-03 15:05 | EKG ---
Test Reason : Blood Pressure : / mmHG Vent. Rate : 067 BPM Atrial Rate : 067 BPM P-R Int : 138 ms QRS Dur : 086 ms QT Int : 464 ms P-R-T Axes : 052 -03 014 degrees QTc Int : 490 ms SINUS RHYTHM WITH PREMATURE ATRIAL COMPLEXES WITH ABERRANT CONDUCTION PROLONGED QT ABNORMAL ECG WHEN COMPARED WITH ECG OF 26-OCT-2016 14:34, ABERRANT CONDUCTION IS NOW PRESENT Confirmed by MD Norman, Mark ([id number]) on 01/03/2020 3:05:02 PM Referred By: Confirmed By:Mark Austin MD
[2020-01-03 18:01] LABS: HEMATOCRIT 36.3 % (35.4-49); HEMOGLOBIN 12.3 GM/dL (11.7-16.9); MCH 30.9 pg (25.7-33.7); MCHC 33.8 g/dl (32.0-35.9); MEAN CELL VOLUME 91.7 fl (80-96); MEAN PLT VOLUME 9.8 fl (7.5-11.1); PLATELET COUNT 228 K/MM3 (134-434); RBC 3.97 M/mm3 (4.00-5.60); WHITE BLOOD COUNT 7.1 K/mm3 (4.0-10.0)
[2020-01-03 18:16] LABS: ALBUMIN 3.9 g/dl (3.4-5.0); BILIRUBIN,TOTAL 0.6 mg/dL (0.2-1); CREATININE 0.9 mg/dL (0.55-1.3); POTASSIUM 3.9 mmol/L (3.5-5.1)
[2020-01-03] MEDS: chlordiazePOXIDE HCL 25 MG CAPSULE PO SCH ×2 (19:33→22:27)
[2020-01-03] MEDS: MELATONIN 5 MG TABLETS PO SCH (22:27)
[2020-01-03] MEDS: THIAMINE HCL 100 MG TABLET (FP) PO SCH (22:28)
[2020-01-04] MEDS ORDERED: METHADONE HCL 10 MG TABLET PO SCH (06:00)
[2020-01-04] MEDS: chlordiazePOXIDE HCL 25 MG CAPSULE PO SCH ×4 (06:59→22:27)
[2020-01-04] MEDS: hydrOXYzine PAMOATE 25 MG CAPSULE (FP) PO SCH ×2 (06:59→10:16)
[2020-01-04] MEDS ORDERED: METHADONE HCL 5 MG TABLET ONE (07:01)
[2020-01-04] MEDS: METHADONE 20 MG, METHADONE 5 MG PO SCH (07:01)
[2020-01-04] MEDS ORDERED: METHADONE HCL 10 MG TABLET ONE (07:01)
[2020-01-04] MEDS: PRENATAL VITAMINS W/ FOLIC ACID TABLET (FP) PO SCH (10:15)
[2020-01-04] MEDS: NICOTINE 7 MG/24 HOURS TOPICAL PATCH TD SCH (10:16)
--- NOTE | 2020-01-04 12:17 | CONSULT ---
[facility] Psychiatric Consult - Data Date of interview: 01/04/20 Admission source: Self-referred Identifying data: Mr Villasenor is a 54 years old single male, unemployed receiving SSI, domiciled seeking detox treatment for alcohol, opioid and cocaine Substance Abuse History: Reports history of alcohol, michelle and cocaine use. Refer to addiction counselor's summary for further information Medical History: Significant for history of treatment for +PPD in 2013 and syphilis. Patient is on methadone 25 mg/day from [facility]. Smokes 2 cigarettes daily Psychiatric History: Patient is known for two previous admissions to this facility. He is amharic-speaking and interview was facilitated with help of nursing staff acting as loading machine tool setter. He reports that he was diagnosed with Bipolar Schizophrenia in [address] [facility] and started on psychotropic medications. Reports that he still receives outpatient psychiatric treatment at same facility and he is prescribed Lexapro 20 mg/day and Abilify 2 mg/day. Denies previous psychiatric hospitalization or suicidal attempt. At present, denies experiencing psycotic, manic or depressive symptoms, S/H ideations. However, he is very irritable, hostile and reports sleeping poorly Physical/Sexual Abuse/Trauma History: Not addressed due to patient's irritability/hostility Mental Status Exam - Mental Status Exam Alert and Oriented to: Time, Place, Person Cognitive Function: Fair Patient Appearance: Disheveled Mood: Hostile, Irritable Affect: Appropriate Patient Behavior: Cooperative (suprficially) Speech Pattern: Clear Voice Loudness: Normal Thought Process: Intact, Goal Oriented Hallucinations: Denies Suicidal Ideation: Denies Homicidal Ideation: Denies Insight/Judgement: Poor Sleep: Poorly Appetite: Good Muscle strength/Tone: Normal Gait/Station: Normal Psychiatric Findings - Problem List ([place] 1, 2,3) (1) Bipolar disorder Current Visit: Yes Status: Chronic Qualifiers: Active/Remission status: remission status unspecified Qualified Code(s): F31.9 - Bipolar disorder, unspecified (2) Schizoaffective disorder Current Visit: Yes Status: Ruled-out (3) Substance induced mood disorder Current Visit: No Status: Acute (4) Substance-induced sleep disorder Current Visit: Yes Status: Acute (5) Alcohol dependence with uncomplicated withdrawal Current Visit: Yes Status: Acute (6) Cocaine dependence, uncomplicated Current Visit: Yes Status: Acute (7) Opioid dependence on agonist therapy Current Visit: No Status: Chronic (8) Nicotine dependence Current Visit: No Status: Chronic Qualifiers: Nicotine product type: cigarettes Substance use status: uncomplicated Qualified Code(s): F17.210 - Nicotine dependence, cigarettes, uncomplicated (9) PPD positive Current Visit: No Status: Resolved - Initial Treatment Plan Initial Treatment Plan: 1) Continue Lexapro 20 mg po daily and Abilify 20 mg po daily. 2) Continue inpatient detoxification
--- NOTE | 2020-01-04 12:23 | PN ---
S CIWA - CIWA Score Nausea/Vomitin-No Nausea/No Vomiting Muscle Tremors: 2 Anxiety: 2 Agitation: 2 Paroxysmal Sweats: 2 Orientation: 0-Oriented Tacttile Disturbances: 0-None Auditory Disturbances: 0-None Visual Disturbances: 0-None Headache: 0-None Present CIWA-Ar Total Score: 8 BHS Progress Note (SOAP) Subjective: sweats irritable agitation Objective: 01/04/20 15:05 Vital Signs Temperature 97.5 F L 01/04/20 12:30 Pulse Rate 72 01/04/20 12:30 Respiratory Rate 18 01/04/20 12:30 Blood Pressure 131/75 01/04/20 12:30 O2 Sat by Pulse Oximetry (%) 97 01/04/20 12:30 Laboratory Tests 01/03/20 01/03/20 01/03/20 14:15 14:15 14:15 WBC 7.1 RBC 3.97 L Hgb 12.3 Hct 36.3 MCV 91.7 MCH 30.9 MCHC 33.8 RDW 14.0 Plt Count 228 MPV 9.8 Sodium 138 Potassium 3.9 Chloride 102 Carbon Dioxide 32 Anion Gap 4 L BUN 18.0 Creatinine 0.9 Est GFR (CKD-EPI)AfAm 111.05 Est GFR (CKD-EPI)NonAf 95.81 Random Glucose 80 Calcium 9.0 Total Bilirubin 0.6 AST 23 ALT 16 Alkaline Phosphatase 68 Total Protein 7.0 Albumin 3.9 Syphilis Serology Reactive A* RPR Titer COVID-19 (NEFTALY) 01/03/20 01/03/20 14:15 14:45 WBC RBC Hgb Hct MCV MCH MCHC RDW Plt Count MPV Sodium Potassium Chloride Carbon Dioxide Anion Gap BUN Creatinine Est GFR (CKD-EPI)AfAm Est GFR (CKD-EPI)NonAf Random Glucose Calcium Total Bilirubin AST ALT Alkaline Phosphatase Total Protein Albumin Syphilis Serology RPR Titer Reactive 1:1 H D COVID-19 (NEFTLAY) Not detected labs noted aaox3 lying in bed no acute distress Assessment: 01/04/20 15:06 withdrawals Plan: continue detox
[2020-01-04] MEDS: ESCITALOPRAM OXALATE 20 MG TABLET PO SCH (12:50)
[2020-01-04] MEDS: ARIPiprazole 10 MG TABLET PO SCH (12:50)
[2020-01-04] MEDS: THIAMINE HCL 100 MG TABLET (FP) PO SCH (22:27)
[2020-01-04] MEDS: MELATONIN 5 MG TABLETS PO SCH (23:11)
[2020-01-05] MEDS ORDERED: METHADONE HCL 10 MG TABLET ONE (03:17)
[2020-01-05] MEDS ORDERED: METHADONE HCL 5 MG TABLET ONE (03:18)
[2020-01-05] MEDS: METHADONE 20 MG, METHADONE 5 MG PO SCH (05:35)
[2020-01-05] MEDS: chlordiazePOXIDE HCL 25 MG CAPSULE PO SCH ×4 (05:35→22:26)
[2020-01-05] MEDS: ESCITALOPRAM OXALATE 20 MG TABLET PO SCH (10:33)
[2020-01-05] MEDS: PRENATAL VITAMINS W/ FOLIC ACID TABLET (FP) PO SCH (10:33)
[2020-01-05] MEDS: ARIPiprazole 10 MG TABLET PO SCH (10:33)
[2020-01-05] MEDS: NICOTINE 7 MG/24 HOURS TOPICAL PATCH TD SCH (10:33)
--- NOTE | 2020-01-05 12:13 | PN ---
S CIWA - CIWA Score Nausea/Vomitin-No Nausea/No Vomiting Muscle Tremors: 2 Anxiety: 1-Mildly Anxious Agitation: 2 Paroxysmal Sweats: 2 Orientation: 0-Oriented Tacttile Disturbances: 0-None Auditory Disturbances: 0-None Visual Disturbances: 0-None Headache: 0-None Present CIWA-Ar Total Score: 7 BHS Progress Note (SOAP) Subjective: sweats shakes irritable Objective: 01/05/20 12:12 Vital Signs Temperature 98.7 F 01/05/20 08:42 Pulse Rate 60 01/05/20 08:42 Respiratory Rate 18 01/05/20 08:42 Blood Pressure 152/91 01/05/20 08:42 O2 Sat by Pulse Oximetry (%) 95 01/05/20 05:30 Laboratory Tests 01/03/20 01/03/20 01/03/20 14:15 14:15 14:15 WBC 7.1 RBC 3.97 L Hgb 12.3 Hct 36.3 MCV 91.7 MCH 30.9 MCHC 33.8 RDW 14.0 Plt Count 228 MPV 9.8 Sodium 138 Potassium 3.9 Chloride 102 Carbon Dioxide 32 Anion Gap 4 L BUN 18.0 Creatinine 0.9 Est GFR (CKD-EPI)AfAm 111.05 Est GFR (CKD-EPI)NonAf 95.81 Random Glucose 80 Calcium 9.0 Total Bilirubin 0.6 AST 23 ALT 16 Alkaline Phosphatase 68 Total Protein 7.0 Albumin 3.9 Syphilis Serology Reactive A* RPR Titer COVID-19 (NEFTALY) 01/03/20 01/03/20 14:15 14:45 WBC RBC Hgb Hct MCV MCH MCHC RDW Plt Count MPV Sodium Potassium Chloride Carbon Dioxide Anion Gap BUN Creatinine Est GFR (CKD-EPI)AfAm Est GFR (CKD-EPI)NonAf Random Glucose Calcium Total Bilirubin AST ALT Alkaline Phosphatase Total Protein Albumin Syphilis Serology RPR Titer Reactive 1:1 H D COVID-19 (NEFTALY) Not detected labs noted aaox3 ambulating no acute distress Assessment: 01/05/20 12:13 withdrawals Plan: continue detox
[2020-01-05] MEDS: THIAMINE HCL 100 MG TABLET (FP) PO SCH (22:26)
[2020-01-05] MEDS: MELATONIN 5 MG TABLETS PO SCH (22:27)
[2020-01-06] MEDS ORDERED: chlordiazePOXIDE HCL 10 MG CAPSULE PO PRN
[2020-01-06] MEDS ORDERED: METHADONE HCL 5 MG TABLET ONE (04:32)
[2020-01-06] MEDS ORDERED: METHADONE HCL 10 MG TABLET ONE (04:32)
[2020-01-06] MEDS: chlordiazePOXIDE HCL 10 MG CAPSULE PO SCH ×4 (06:30→22:05)
[2020-01-06] MEDS: METHADONE 20 MG, METHADONE 5 MG PO SCH (06:30)
[2020-01-06] MEDS: ESCITALOPRAM OXALATE 20 MG TABLET PO SCH (10:40)
[2020-01-06] MEDS: PRENATAL VITAMINS W/ FOLIC ACID TABLET (FP) PO SCH (10:40)
[2020-01-06] MEDS: ARIPiprazole 10 MG TABLET PO SCH (10:40)
[2020-01-06] MEDS: NICOTINE 7 MG/24 HOURS TOPICAL PATCH TD SCH (10:41)
--- NOTE | 2020-01-06 18:39 | PN ---
S CIWA - CIWA Score Nausea/Vomitin-No Nausea/No Vomiting Muscle Tremors: 4-Moderate,w/Arms Extend Anxiety: 2 Agitation: 0-Normal Activity Paroxysmal Sweats: No Perspiration Orientation: 0-Oriented Tacttile Disturbances: 0-None Auditory Disturbances: 1-Very Mild Visual Disturbances: 2-Mild Sensitivity Headache: 0-None Present CIWA-Ar Total Score: 9 BHS Progress Note (SOAP) Subjective: Tremors, Fatigue, Anxious. Objective: Patient A & O X 3; In No Acute Distress. 01/06/20 18:38 Vital Signs Temperature 97.6 F 01/06/20 17:05 Pulse Rate 71 01/06/20 17:05 Respiratory Rate 18 01/06/20 17:05 Blood Pressure 155/95 01/06/20 17:05 O2 Sat by Pulse Oximetry (%) 98 01/06/20 17:05 Laboratory Tests 01/03/20 01/03/20 01/03/20 14:15 14:15 14:15 WBC 7.1 RBC 3.97 L Hgb 12.3 Hct 36.3 MCV 91.7 MCH 30.9 MCHC 33.8 RDW 14.0 Plt Count 228 MPV 9.8 Sodium 138 Potassium 3.9 Chloride 102 Carbon Dioxide 32 Anion Gap 4 L BUN 18.0 Creatinine 0.9 Est GFR (CKD-EPI)AfAm 111.05 Est GFR (CKD-EPI)NonAf 95.81 Random Glucose 80 Calcium 9.0 Total Bilirubin 0.6 AST 23 ALT 16 Alkaline Phosphatase 68 Total Protein 7.0 Albumin 3.9 Syphilis Serology Reactive A* RPR Titer COVID-19 (NEFTALY) 01/03/20 01/03/20 14:15 14:45 WBC RBC Hgb Hct MCV MCH MCHC RDW Plt Count MPV Sodium Potassium Chloride Carbon Dioxide Anion Gap BUN Creatinine Est GFR (CKD-EPI)AfAm Est GFR (CKD-EPI)NonAf Random Glucose Calcium Total Bilirubin AST ALT Alkaline Phosphatase Total Protein Albumin Syphilis Serology RPR Titer Reactive 1:1 H D COVID-19 (NEFTALY) Not detected Lab Results noted. Detox Admission RPR Result noted: Reactive A; Reactive; Titer 1:1. Patient reports that he completed treatment for Syphilis in the past. Assessment: 01/06/20 18:39 WITHDRAWAL SYMPTOMS. REACTIVE RPR. Plan: Continue Detox.
[2020-01-06] MEDS: MELATONIN 5 MG TABLETS PO SCH (22:05)
[2020-01-06] MEDS: THIAMINE HCL 100 MG TABLET (FP) PO SCH (22:05)
[2020-01-07] MEDS ORDERED: METHADONE HCL 10 MG TABLET ONE (03:08)
[2020-01-07] MEDS ORDERED: METHADONE HCL 5 MG TABLET ONE (03:08)
[2020-01-07] MEDS: METHADONE 20 MG, METHADONE 5 MG PO SCH (06:09)
[2020-01-07] MEDS: chlordiazePOXIDE HCL 10 MG CAPSULE PO SCH ×2 (06:09→17:16)
[2020-01-07] MEDS: ESCITALOPRAM OXALATE 20 MG TABLET PO SCH (09:55)
[2020-01-07] MEDS: ARIPiprazole 10 MG TABLET PO SCH (09:55)
[2020-01-07] MEDS: PRENATAL VITAMINS W/ FOLIC ACID TABLET (FP) PO SCH (09:55)
[2020-01-07] MEDS: NICOTINE 7 MG/24 HOURS TOPICAL PATCH TD SCH (09:55)
--- NOTE | 2020-01-07 12:23 | PN ---
[facility] CIWA - CIWA Score Nausea/Vomitin-No Nausea/No Vomiting Muscle Tremors: 1-None Visible, but [place] Anxiety: 2 Agitation: 0-Normal Activity Paroxysmal Sweats: No Perspiration Orientation: 0-Oriented Tacttile Disturbances: 0-None Auditory Disturbances: 0-None Visual Disturbances: 0-None Headache: 0-None Present CIWA-Ar Total Score: 3 BHS Progress Note (SOAP) Subjective: Complaint of mild tremors and anxiety. Objective: 01/07/20 12:21 Alert and oriented x3, in no acute respiratory distress. Full ROM, ambulating in unit without any assistance. Skin warm to touch without lesions. Vital Signs 01/07/20 01/07/20 06:20 09:25 Temperature 98.6 F 97.7 F Pulse Rate 67 60 Respiratory 16 16 Rate Blood Pressure 144/91 150/78 O2 Sat by Pulse 95 95 Oximetry (%) Laboratory Last Values WBC 7.1 K/mm3 (4.0-10.0) 01/03/20 14:15 RBC 3.97 M/mm3 (4.00-5.60) L 01/03/20 14:15 Hgb 12.3 GM/dL (11.7-16.9) 01/03/20 14:15 Hct 36.3 % (35.4-49) 01/03/20 14:15 MCV 91.7 fl (80-96) 01/03/20 14:15 MCH 30.9 pg (25.7-33.7) 01/03/20 14:15 MCHC 33.8 g/dl (32.0-35.9) 01/03/20 14:15 RDW 14.0 % (11.9-15.9) 01/03/20 14:15 Plt Count 228 K/MM3 (134-434) 01/03/20 14:15 MPV 9.8 fl (7.5-11.1) 01/03/20 14:15 Sodium 138 mmol/L (136-145) 01/03/20 14:15 Potassium 3.9 mmol/L (3.5-5.1) 01/03/20 14:15 Chloride 102 mmol/L (98-107) 01/03/20 14:15 Carbon Dioxide 32 mmol/L (21-32) 01/03/20 14:15 Anion Gap 4 MMOL/L (8-16) L 01/03/20 14:15 BUN 18.0 mg/dL (7-18) 01/03/20 14:15 Creatinine 0.9 mg/dL (0.55-1.3) 01/03/20 14:15 Est GFR (CKD-EPI)AfAm 111.05 01/03/20 14:15 Est GFR (CKD-EPI)NonAf 95.81 01/03/20 14:15 Random Glucose 80 mg/dL (74-106) 01/03/20 14:15 Calcium 9.0 mg/dL (8.5-10.1) 01/03/20 14:15 Total Bilirubin 0.6 mg/dL (0.2-1) 01/03/20 14:15 AST 23 U/L (15-37) 01/03/20 14:15 ALT 16 U/L (13-61) 01/03/20 14:15 Alkaline Phosphatase 68 U/L (45-117) 01/03/20 14:15 Total Protein 7.0 g/dl (6.4-8.2) 01/03/20 14:15 Albumin 3.9 g/dl (3.4-5.0) 01/03/20 14:15 Syphilis Serology Reactive (NONREACTIVE) A* 01/03/20 14:15 RPR Titer Reactive 1:1 (NONREACTIVE) H D 01/03/20 14:15 COVID-19 (NEFTALY) Not detected (Not Detected) 01/03/20 14:45 Labs noted. Assessment: 01/07/20 12:22 Withdrawal symptoms. Plan: Continue detox protocol. D/C in AM.
[2020-01-07] MEDS ORDERED: cloNIDine HCL 0.1 MG TABLET PO ONE (18:05)
--- NOTE | 2020-01-07 18:08 | PN ---
BHS Progress Note Note: Patient's blood pressure is B/P 184/105. Patent is asymptomatic Vital Signs Temperature 98.0 F 01/07/20 13:50 Pulse Rate 66 01/07/20 18:03 Respiratory Rate 18 01/07/20 18:03 Blood Pressure 184/105 H 01/07/20 18:03 O2 Sat by Pulse Oximetry (%) 95 01/07/20 13:50 Action: Clonidine 0.1mg tablet oral ordered
[2020-01-07] MEDS: hydrOXYzine PAMOATE 25 MG CAPSULE (FP) PO PRN ×2 (18:22→22:05)
[2020-01-07] MEDS: THIAMINE HCL 100 MG TABLET (FP) PO SCH (22:05)
[2020-01-07] MEDS: MELATONIN 5 MG TABLETS PO SCH (22:05)
[2020-01-08] MEDS ORDERED: METHADONE HCL 10 MG TABLET ONE (03:22)
[2020-01-08] MEDS ORDERED: METHADONE HCL 5 MG TABLET ONE (03:22)
[2020-01-08] MEDS ORDERED: chlordiazePOXIDE HCL 10 MG CAPSULE PO ONE (05:00)
[2020-01-08] MEDS: METHADONE 20 MG, METHADONE 5 MG PO SCH (05:07)
--- NOTE | 2020-01-08 09:17 | DS ---
[facility] Detox Discharge Summary Admission Date: 01/03/20 Discharge Date: 01/08/20 - History Present History: Alcohol Dependence, Cocaine Dependence, MMTP - Physical Exam Results Vital Signs: Vital Signs Temperature 96.8 F L 01/08/20 05:05 Pulse Rate 51 L 01/08/20 05:05 Respiratory Rate 16 01/08/20 05:05 Blood Pressure 120/73 01/08/20 05:05 O2 Sat by Pulse Oximetry (%) 96 01/08/20 05:05 Pertinent Admission Physical Exam Findings: Vital Signs Temperature 96.8 F L 01/08/20 05:05 Pulse Rate 51 L 01/08/20 05:05 Respiratory Rate 16 01/08/20 05:05 Blood Pressure 120/73 01/08/20 05:05 O2 Sat by Pulse Oximetry (%) 96 01/08/20 05:05 Laboratory Tests 01/03/20 01/03/20 01/03/20 14:15 14:15 14:15 WBC 7.1 RBC 3.97 L Hgb 12.3 Hct 36.3 MCV 91.7 MCH 30.9 MCHC 33.8 RDW 14.0 Plt Count 228 MPV 9.8 Sodium 138 Potassium 3.9 Chloride 102 Carbon Dioxide 32 Anion Gap 4 L BUN 18.0 Creatinine 0.9 Est GFR (CKD-EPI)AfAm 111.05 Est GFR (CKD-EPI)NonAf 95.81 Random Glucose 80 Calcium 9.0 Total Bilirubin 0.6 AST 23 ALT 16 Alkaline Phosphatase 68 Total Protein 7.0 Albumin 3.9 Syphilis Serology Reactive A* RPR Titer COVID-19 (NEFTALY) 01/03/20 01/03/20 14:15 14:45 WBC RBC Hgb Hct MCV MCH MCHC RDW Plt Count MPV Sodium Potassium Chloride Carbon Dioxide Anion Gap BUN Creatinine Est GFR (CKD-EPI)AfAm Est GFR (CKD-EPI)NonAf Random Glucose Calcium Total Bilirubin AST ALT Alkaline Phosphatase Total Protein Albumin Syphilis Serology RPR Titer Reactive 1:1 H D COVID-19 (NEFTALY) Not detected labs noted aaox3 ambulating no acute distres lungs CTA - Treatment Hospital Course: Detox Protocol Followed, Detoxed Safely, Responded well, Discharged Condition Good, Rehab Referral Accepted - Medication Discharge Medications: Ambulatory Orders Aripiprazole [Abilify -] 20 mg PO DAILY 10/26/16 Escitalopram Oxalate [Lexapro -] 20 mg PO DAILY 10/26/16 Aripiprazole [Abilify -] 20 mg PO HS #30 tablet 10/27/16 Escitalopram Oxalate [Lexapro -] 20 mg PO DAILY #30 tablet 10/27/16 - Diagnosis (1) Alcohol dependence with uncomplicated withdrawal Current Visit: Yes Status: Chronic (2) Cocaine dependence, uncomplicated Current Visit: Yes Status: Chronic (3) Positive RPR test Current Visit: Yes Status: Acute (4) Substance-induced sleep disorder Current Visit: Yes Status: Acute (5) Bipolar disorder Current Visit: Yes Status: Chronic Qualifiers: Active/Remission status: remission status unspecified Qualified Code(s): F31.9 - Bipolar disorder, unspecified (6) Methadone maintenance therapy patient Current Visit: Yes Status: Chronic (7) Schizoaffective disorder Current Visit: Yes Status: Ruled-out (8) Insomnia Current Visit: No Status: Acute Qualifiers: Insomnia type: unspecified Qualified Code(s): G47.00 - Insomnia, unspecified (9) Substance induced mood disorder Current Visit: No Status: Acute (10) Traumatic ecchymosis of left knee Current Visit: No Status: Acute Qualifiers: Encounter type: initial encounter Qualified Code(s): S80.02XA - Contusion of left knee, initial encounter (11) GERD (gastroesophageal reflux disease) Current Visit: No Status: Chronic Qualifiers: Esophagitis presence: without esophagitis Qualified Code(s): K21.9 - Gastro-esophageal reflux disease without esophagitis (12) Nicotine dependence Current Visit: No Status: Chronic Qualifiers: Nicotine product type: cigarettes Substance use status: uncomplicated Qualified Code(s): F17.210 - Nicotine dependence, cigarettes, uncomplicated (13) Opioid dependence on agonist therapy Current Visit: No Status: Chronic (14) PPD positive Current Visit: No Status: Resolved - AMA Did Patient Leave Against Medical Advice: No
[2020-01-08 09:37] VITALS: BP 112/66; PULSE 71; TEMP 97.1
[2020-01-08] MEDS: PRENATAL VITAMINS W/ FOLIC ACID TABLET (FP) PO SCH (10:40)
[2020-01-08] MEDS: ARIPiprazole 10 MG TABLET PO SCH (10:40)
[2020-01-08] MEDS: NICOTINE 7 MG/24 HOURS TOPICAL PATCH TD SCH (10:40)
[2020-01-08] MEDS: ESCITALOPRAM OXALATE 20 MG TABLET PO SCH (10:40)
== END 2020-01-08 12:15 | disposition home or self-care (01) | DRG 773 ==
LOC: YASAS 11:45 → Y6N 14:07
PROVIDERS: ADMIT Allergy & Immunology; ATTEND Allergy & Immunology
PROC: HZ2ZZZZ Detoxification Services for Substance Abuse Treatment (ICD-10-PCS; principal; 2020-01-03)
DX: F10.230 Alcohol dependence with withdrawal, uncomplicated (principal); F11.20 Opioid dependence, uncomplicated; F14.20 Cocaine dependence, uncomplicated; F17.210 Nicotine dependence, cigarettes, uncomplicated; F19.282 Other psychoactive substance dependence with psychoactive substance-induced sleep disorder; F19.24 Other psychoactive substance dependence with psychoactive substance-induced mood disorder; F31.9 Bipolar disorder, unspecified; A53.0 Latent syphilis, unspecified as early or late; K21.9 Gastro-esophageal reflux disease without esophagitis
CPT/HCPCS: 36415; 71046-TC-FY; 80053; 85027; 86593; 86780; 93005; 93010; C9803; J0735; U0003